=== PATIENT | female | born 1975 ===

== ENCOUNTER 2018-08-26 12:30 | Inpatient (IN) | payer OTHER ==
[~2018-08-26] VITALS: Ht 167.6 cm; Wt 70.3 kg
[~2018-08-26 12:30] MED LIST: ADDERALL 10 MG10 MG PO; WELLBUTRIN XL300 MG PO
== END 2018-09-03 18:10 | disposition home or self-care (01) | DRG 585 ==
LOC: SURG 12:30 → O/R 09-02 06:00 → SURG 09-02 07:00 → SURH 09-02 13:56
PROVIDERS: Plastic Surgery; Surgery
PROC: 0HBX0ZX Excision of Left Nipple, Open Approach, Diagnostic (ICD-10-PCS; 2018-09-02)
PROC: 0HBW0ZX Excision of Right Nipple, Open Approach, Diagnostic (ICD-10-PCS; 2018-09-02)
PROC: 0HTV0ZZ Resection of Bilateral Breast, Open Approach (ICD-10-PCS; principal; 2018-09-02 07:00)
PROC: 0HHV0NZ Insertion of Tissue Expander into Bilateral Breast, Open Approach (ICD-10-PCS; 2018-09-02 07:00)
DX: Z40.01 Encounter for prophylactic removal of breast (principal); Z15.01 Genetic susceptibility to malignant neoplasm of breast; N64.81 Ptosis of breast; Z90.13 Acquired absence of bilateral breasts and nipples

== ENCOUNTER 2019-01-06 06:20 | Day surgery (SDC) | payer OTHER | END 2019-01-06 13:35 | disposition home or self-care (01) | LOC: CIR.AMB 06:20 | PROVIDERS: Plastic Surgery | PROC: 0HPT0JZ Removal of Synthetic Substitute from Right Breast, Open Approach (ICD-10-PCS; 2019-01-06) | PROC: 0HRV0JZ Replacement of Bilateral Breast with Synthetic Substitute, Open Approach (ICD-10-PCS; 2019-01-06) | PROC: 0H0V3ZZ Alteration of Bilateral Breast, Percutaneous Approach (ICD-10-PCS; 2019-01-06) | PROC: 0HRV37Z Replacement of Bilateral Breast with Autologous Tissue Substitute, Percutaneous Approach (ICD-10-PCS; principal; 2019-01-06 07:00) | PROC: 0HPU0JZ Removal of Synthetic Substitute from Left Breast, Open Approach (ICD-10-PCS; 2019-01-06 07:00) | DX: Z42.1 Encounter for breast reconstruction following mastectomy (principal); Z90.13 Acquired absence of bilateral breasts and nipples ==

== ENCOUNTER 2021-06-29 14:08 | Outpatient (CLI) | payer OTHER | END 2021-06-29 14:24 | disposition home or self-care (01) | LOC: RAD 14:08 | PROVIDERS: ATTEND Obstetrics & Gynecology Obstetrics | DX: R05 Cough (principal) ==

== ENCOUNTER 2023-08-20 08:12 | Outpatient (CLI) | payer OTHER | END 2023-08-20 08:44 | disposition home or self-care (01) | LOC: SONOGRAMA 08:12 | DX: R10.2 Pelvic and perineal pain (principal) ==

== ENCOUNTER 2024-09-24 08:04 | Outpatient (CLI) | payer OTHER | END 2024-09-24 08:14 | disposition home or self-care (01) | LOC: RAD 08:04 | DX: M61.03 Myositis ossificans traumatica, forearm (principal) ==